=== PATIENT | female | born 1975 | race Caucasian/White ===

== ENCOUNTER → 2016-07-27 07:48 | Outpatient (CLI) | payer MEDICAID ==
--- NOTE | 2016-08-04 14:37 | ST ---
PATIENT:BEV CADE MEDICAL RECORD: [id number] SEX: F LOCATION:[facility] [place] [facility] ORDER #: ADMISSION DATE: 07/27/16 AGE OF PATIENT: 41 REFERRING PHYSICIAN: INTERPRETING PHYSICIAN: SHERINE BARBOSA MD DATE OF SERVICE: 07/27/2016 Nuclear Stress Test INDICATION: Chest pain of unknown etiology. The patient was exercised on standard Lexiscan protocol with 30.6 mCi of sestamibi injected at peak stress. Rest images were done previously with 11.7 mCi. FINDINGS: Gated SPECT reveals a preserved ejection fraction at 76% with good wall motion and thickening and brightening throughout all segments. SPECT imaging sestamibi is used as myocardial perfusion agent. There is homogeneous uptake throughout all segments at rest and stress with no evidence of inducible ischemia or previous infarction. OVERALL IMPRESSION: 1. This is a normal nuclear stress test with no evidence of inducible ischemia or previous infarction. 2. Gated SPECT reveals preserved ejection fraction greater than 70% in this patient with ongoing symptomatology, the current scan does not suggest the presence hemodynamically significant coronary artery disease. We will evaluate noncardiac etiology of chest pain. TRANSINT:[id number] Voice Confirmation ID: [id number] DOCUMENT ID: [id number] SHERINE BARBOSA MD at 1437 CC: [id number] DICTATION DATE: 07/27/16 1211 PRODUCTION PAINTER: 07/28/16 0134 DEP CLI 07/27/16 [id number] [place] [address]
== END | disposition home or self-care (01) ==
LOC: D.NM 07:48
DX: R07.9 Chest pain, unspecified (principal); R06.00 Dyspnea, unspecified

== ENCOUNTER → 2017-10-15 09:54 | Outpatient (CLI) | payer MEDICAID | END | disposition home or self-care (01) | LOC: D.RAD 09:54 | DX: K59.00 Constipation, unspecified (principal); R13.10 Dysphagia, unspecified ==

== ENCOUNTER → 2017-10-19 09:56 | Outpatient (CLI) | payer MEDICAID | END | disposition home or self-care (01) | LOC: D.RAD 09:56 | DX: K59.00 Constipation, unspecified (principal); R13.10 Dysphagia, unspecified ==